=== PATIENT | male | born 1985 | race Caucasian/White ===

== ENCOUNTER 2021-06-02 09:22 | Emergency (ER) | payer OTHER ==
[2021-06-02] MEDS ORDERED: ONDANSETRON 4 MG/2 ML VIAL ONE (09:46)
[2021-06-02] MEDS ORDERED: NA CHLORIDE 0.9% 1,000 ML ONE (09:46)
[2021-06-02 09:47] LABS: Lymphocytes % 12.4 % (15.3-44.8); MPV 9.1 fL (7.6-11.3); RBC Red Blood Cell Count 4.85 M/uL (4.33-5.43)
--- NOTE | 2021-06-02 10:43 | RAD REPORT ---
EXAM DESCRIPTION: CTAbdomen Pelvis W Contrast - 06/02/2021 10:05 am CLINICAL HISTORY: Abdominal pain. right lower abd pain COMPARISON: No comparisons TECHNIQUE: Biphasic CT imaging of the abdomen and pelvis was performed with 100 ml non-ionic IV cont rast. All CT scans are performed using dose optimization technique as appropriate and may include automated exposure control or mA/KV adjustment according to patient size. FINDINGS: The lung bases are clear. The liver, spleen, pancreas, adrenal glands and kidneys are within normal limits. No bowel obstruction, free air, free fluid or abscess. Small fat containing umbilical hernia. The berna endix is normal. No evidence of significant lymphadenopathy. No suspicious bony findings. IMPRESSION: No acute intra-abdominal or pelvic finding.
[2021-06-02 10:48] LABS: Bilirubin Direct 0.1 mg/dL (0-0.2); Bilirubin Total 0.5 mg/dL (0.2-1.0); Protein, Total 7.6 g/dL (6.4-8.2)
[2021-06-02 11:28] LABS: Urine Blood 2+ (Negative); Urine Glucose Negative (Negative); Urine Protein Negative (Negative); Urine Specific Gravity 1.015 (1.005-1.030)
--- NOTE | 2021-06-02 11:35 | EDPHYS ---
Physician Documentation [facility] Name: Car Gillette Age: 35 yrs Sex: Male : 1985 Arrival Date: 06/02/2021 Time: 09:25 Bed 6 Private MD: ED Physician Jose Antonio Chawla HPI: 06/02 09:26 This 35 yrs old Male presents to ER via Unassigned with complaints of Abdominal pain. rn 09:26 The patient presents with abdominal pain right lower quadrant. Onset: The rn symptoms/episode began/occurred this morning. The symptoms do not radiate. Associated signs and symptoms: Pertinent positives: nausea and vomiting, Pertinent negatives: blood in stools, chest pain, fever, hematuria, shortness of breath, testicular pain, vomiting blood. The symptoms are described as sharp, stabbing. Modifying factors: The symptoms are alleviated by nothing, the symptoms are aggravated by touching the area. Severity of pain: At its worst the pain was moderate in the emergency department the pain is unchanged. The patient has not experienced similar symptoms in the past. The patient has not recently seen a physician. Patient reports right lower abdominal pain that began this morning. No fever. No testicular pain or swelling. Reports mild dysuria. Does have history of kidney stones but states this is different. Radiates upward right upper quadrant. Associated with nausea and vomiting. No diarrhea.. Historical: - Allergies: 09:34 No Known Allergies; ke1 - Home Meds: 09:34 None [Active]; ke1 - PMHx: 09:34 None; ke1 - PSHx: 09:34 None; ke1 - Immunization history:: Client reports receiving the 2nd dose of the Covid vaccine. - Social history:: Smoking status: Patient/guardian denies using tobacco, the patient reports quitting approximately 5 years ago. - Family history:: not pertinent. - Hospitalizations: : No recent hospitalization is reported. ROS: 09:26 Constitutional: Negative for fever, chills, and weight loss, Eyes: Negative for injury, rn pain, redness, and discharge, Neck: Negative for injury, pain, and swelling, Cardiovascular: Negative for chest pain, palpitations, and edema, Respiratory: Negative for shortness of breath, cough, wheezing, and pleuritic chest pain, Abdomen/GI: Positive for nausea and vomiting Back: Negative for injury and pain, : Negative for injury, bleeding, discharge, and swelling, MS/Extremity: Negative for injury and deformity, Skin: Negative for injury, rash, and discoloration, Neuro: Negative for headache, weakness, numbness, tingling, and seizure. 09:26 All other systems are negative. Exam: 09:26 Constitutional: This is a well developed, well nourished patient who is awake, alert, rn and in no acute distress. Head/Face: Normocephalic, atraumatic. Eyes: Periorbital areas with no swelling, redness, or edema. Cardiovascular: Regular rate and rhythm. No pulse deficits. Respiratory: No increased work of breathing, no retractions or nasal flaring. Abdomen/GI: Soft,mild RLQ tenderness, no rebound. No masses. No inguinal swelling or masses. Back: No spinal tenderness. No costovertebral tenderness. Full range of motion. Skin: Warm, dry MS/ Extremity: Pulses equal, no cyanosis. Neuro: Awake and alert, GCS 15 Vital Signs: 09:26 BP 131 / 89; Pulse 92; Resp 18; Temp 98.1; Pulse Ox 98% ; Weight 92.08 kg; Height 5 ft. mb7 9 in. (175.26 cm); 09:31 BP 131 / 89; Pulse 99; Resp 18; Temp 98.4; Pulse Ox 99% ; Weight 92.08 kg; Height 5 ft. ke1 9 in. (175.26 cm); Pain 8/10; 10:16 BP 135 / 85; Pulse 63; Resp 16; Pulse Ox 97% ; bp 10:31 BP 125 / 81; Pulse 88; Resp 16 S; Pulse Ox 97% on R/A; jd3 11:48 BP 118 / 71; Pulse 74; Resp 16 S; Pulse Ox 96% on R/A; jd3 09:31 Body Mass Index 29.98 (92.08 kg, 175.26 cm) ke1 MDM: 09:25 Patient medically screened. rn 11:33 Differential diagnosis: appendicitis, diverticulitis, non-specific abd pain, rn Ureterolithiasis, urinary tract infection. Data reviewed: vital signs, nurses notes, lab test result(s), radiologic studies, CT scan, and as a result, I will discharge patient. Counseling: I had a detailed discussion with the patient and/or guardian regarding: the historical points, exam findings, and any diagnostic results supporting the discharge/admit diagnosis, lab results, radiology results, the need for outpatient follow up, to return to the emergency department if symptoms worsen or persist or if there are any questions or concerns that arise at home. Response to treatment: the patient's symptoms have markedly improved after treatment, and as a result, I will discharge patient. Special discussion: Based on the patient's Hx, exam, and Dx evaluation, there is no indication for emergent surgery or inpatient Tx. It is understood by the patient/guardian that if the Sx's persist or worsen they need to return immediately for re-evaluation. I discussed with the patient/guardian in detail that at this point there is no indication for admission to the hospital. It is understood, however, that if the symptoms persist or worsen the patient needs to return immediately for re-evaluation. ED course: No acute findings on CT abdomen pelvis. 2+ hematuria, possibly recently passed kidney stone.. 06/02 09:26 Order name: Basic Metabolic Panel; Complete Time: 11:06 rn 06/02 09:26 Order name: CBC with Diff; Complete Time: 10:04 rn 06/02 09:26 Order name: Hepatic Function; Complete Time: 11: rn 06/02 09:26 Order name: Lipase; Complete Time: 11:06 rn 06/02 09:26 Order name: Urine Microscopic Only rn 06/02 09:26 Order name: SARS-COV-2 RT PCR (Document "Date of Onset" if Symptomatic); Complete Time: rn 11:06/02 09:26 Order name: IV Saline Lock; Complete Time: 09:51 rn 06/02 09:26 Order name: Labs collected and sent; Complete Time: 09:58 rn 06/02 09:26 Order name: CT Abd/Pelvis - IV Contrast Only; Complete Time: 10:44 rn 06/02 09:26 Order name: Urine Dipstick-Ancillary (obtain specimen); Complete Time: 11:32 rn 06/02 11:28 Order name: Urine Dipstick-Ancillary EDMS Administered Medications: 09:50 Drug: NS 0.9% 1000 ml Route: IV; Rate: 1000 ml; Site: right antecubital; ke1 11:49 Follow up: Response: No adverse reaction; IV Status: Completed infusion jd3 09:51 Drug: Zofran (Ondansetron) 4 mg Route: IVP; Site: right antecubital; ke1 10:50 Follow up: Response: No adverse reaction jd3 Disposition Summary: 06/02/21 11:34 Discharge Ordered Location: Home rn Problem: new rn Symptoms: have improved rn Condition: Stable rn Diagnosis - Abdominal pain, unspecified rn Followup: rn - With: Private Physician - When: As needed - Reason: Recheck today's complaints, Re-evaluation by your physician Discharge Instructions: - Discharge Summary Sheet rn - Abdominal Pain, Adult rn Forms: - Medication Reconciliation Form rn - Thank You Letter rn - Antibiotic rn vascular - Prescription Opioid Use rn Signatures: Dispatcher [employer] EDJose Antonio Soliman MD MD rn Ebrottie, Kouassi, RN RN ke1 Jayson Merida RN jd3
--- NOTE | 2021-06-02 11:35 | ER ---
Nurse's Notes [facility] Name: Car Gillette Age: 35 yrs Sex: Male : 1985 Arrival Date: 06/02/2021 Time: 09:25 Bed 6 Private MD: Diagnosis: Abdominal pain, unspecified Presentation: 06/02 09:29 Chief complaint: Patient states: Presents for Right sided abdominal pain that woke him ke1 up this morning at about 5 Am. Coronavirus screen: Vaccine status: Patient reports receiving the 2nd dose of the covid vaccine. 09:29 Method Of Arrival: Law Enforcement: [place] [employer] ke1 09:31 Ebola Screen: No symptoms or risks identified at this time. Initial Sepsis Screen: Does ke1 the patient meet any 2 criteria? No. Patient's initial sepsis screen is negative. Does the patient have a suspected source of infection? No. Patient's initial sepsis screen is negative. 09:33 Risk Assessment: Do you want to hurt yourself or someone else? Patient reports no ke1 desire to harm self or others. Onset of symptoms was June 02, 2021 at 05:00. 09:33 Acuity: SILVANA 3 ke1 Triage Assessment: 09:34 General: Appears uncomfortable, Behavior is calm, cooperative. Pain: Complains of pain ke1 in abdomen Pain does not radiate. Pain level that patient reports is acceptable is 6 out of 10 on a pain scale. Quality of pain is described as crampy, Pain began suddenly, Is continuous, Alleviated by nothing. Aggravated by. Historical: - Allergies: 09:34 No Known Allergies; ke1 - Home Meds: 09:34 None [Active]; ke1 - PMHx: 09:34 None; ke1 - PSHx: 09:34 None; ke1 - Immunization history:: Client reports receiving the 2nd dose of the Covid vaccine. - Social history:: Smoking status: Patient/guardian denies using tobacco, the patient reports quitting approximately 5 years ago. - Family history:: not pertinent. - Hospitalizations: : No recent hospitalization is reported. Screenin:54 Abuse screen: Denies threats or abuse. Nutritional screening: No deficits noted. ke1 Tuberculosis screening: No symptoms or risk factors identified. Fall Risk None identified. Assessment: 09:41 General: Appears in no apparent distress. uncomfortable, Behavior is calm, cooperative, jd3 appropriate for age. Pain: Complains of pain in abdomen Quality of pain is described as aching. Neuro: Level of Consciousness is awake, alert, obeys commands, Oriented to person, place, time, situation. Cardiovascular: Denies chest pain, Capillary refill < 3 seconds Patient's skin is warm and dry. Respiratory: Airway is patent Respiratory effort is even, unlabored, Respiratory pattern is regular, symmetrical, Denies cough, shortness of breath. GI: Abdomen is round non-distended, Abd is soft and non tender X 4 quads. Reports lower abdominal pain, upper abdominal pain. : No signs and/or symptoms were reported regarding the genitourinary system. EENT: No signs and/or symptoms were reported regarding the EENT system. Derm: Skin is intact, Skin is dry, Skin is normal, Skin temperature is warm. Musculoskeletal: Circulation, motion, and sensation intact. Range of motion: intact in all extremities. 10:40 Reassessment: Patient appears in no apparent distress at this time. Patient and/or jd3 family updated on plan of care and expected duration. Pain level reassessed. Patient is alert, oriented x 3, equal unlabored respirations, skin warm/dry/pink. Patient states feeling better. 11:40 Reassessment: Patient appears in no apparent distress at this time. No changes from jd3 previously documented assessment. Patient and/or family updated on plan of care and expected duration. Pain level reassessed. Patient is alert, oriented x 3, equal unlabored respirations, skin warm/dry/pink. Vital Signs: 09:26 BP 131 / 89; Pulse 92; Resp 18; Temp 98.1; Pulse Ox 98% ; Weight 92.08 kg; Height 5 ft. mb7 9 in. (175.26 cm); 09:31 BP 131 / 89; Pulse 99; Resp 18; Temp 98.4; Pulse Ox 99% ; Weight 92.08 kg; Height 5 ft. ke1 9 in. (175.26 cm); Pain 8/10; 10:16 BP 135 / 85; Pulse 63; Resp 16; Pulse Ox 97% ; bp 10:31 BP 125 / 81; Pulse 88; Resp 16 S; Pulse Ox 97% on R/A; jd3 11:48 BP 118 / 71; Pulse 74; Resp 16 S; Pulse Ox 96% on R/A; jd3 09:31 Body Mass Index 29.98 (92.08 kg, 175.26 cm) ke1 ED Course: 09:25 Patient arrived in ED. rn 09:25 Jose Antonio Chawla MD is Attending Physician. rn 09:34 Triage completed. ke1 09:39 Arm band placed on right wrist. ke1 09:41 Jayson Merida RN is Primary Nurse. jd3 09:52 Inserted saline lock: 20 gauge in right antecubital area, using aseptic technique. ke1 09:54 Patient has correct armband on for positive identification. Bed in low position. Call ke1 light in reach. [facility] [employer] correctional officer at bedside. 10:05 CT Abd/Pelvis - IV Contrast Only In Process Unspecified. EDMS 11:18 Rojas Jones, RN is Primary Nurse. bp 11:32 Urine Microscopic Only Sent. ke1 11:46 Primary Nurse role handed off by Rojas Jones RN jd3 11:46 Jayson Merida RN is Primary Nurse. jd3 11:48 No provider procedures requiring assistance completed. jd3 11:58 IV discontinued, intact, bleeding controlled, No redness/swelling at site. Pressure jd3 dressing applied. Administered Medications: 09:50 Drug: NS 0.9% 1000 ml Route: IV; Rate: 1000 ml; Site: right antecubital; ke1 11:49 Follow up: Response: No adverse reaction; IV Status: Completed infusion jd3 09:51 Drug: Zofran (Ondansetron) 4 mg Route: IVP; Site: right antecubital; ke1 10:50 Follow up: Response: No adverse reaction jd3 Outcome: 11:34 Discharge ordered by . rn 11:57 Discharged to home ambulatory, with [facility] guards jd3 11:57 Condition: stable 11:57 Discharge instructions given to patient, Instructed on discharge instructions, follow up and referral plans. Demonstrated understanding of instructions, follow-up care. 11:59 Patient left the ED. jd3 Signatures: Dispatcher [employer] EDMS Jose Antonio Chawla MD MD rn Davies, Jonathon, RN RN j Rojas Jones RN RN bp Breneman, Mary [facility] Richard Mohan RN RN ke1 Corrections: (The following items were deleted from the chart) 11:49 11:48 Response: No adverse reaction jd3 jd3
[2021-06-02 11:53] LABS: Urine RBC <5 /HPF (NONE SEEN)
[2021-06-02 11:54] LABS: Urine Bacteria 20-50 /HPF (NONE SEEN)
[2021-06-02 12:17] VITALS: TEMP 98.4
[2021-06-02 12:20] VITALS: BP 118/71; O2SAT 96
== END 2021-06-02 11:59 | disposition home or self-care (01) ==
LOC: ER 09:22
DX: R10.31 Right lower quadrant pain (principal); Z20.822 Contact with and (suspected) exposure to COVID-19
CPT/HCPCS: 96361; 85025; 80048; 36415; 82565; 80076; 83690; 74177; 96374; 99284; U0003; Q9967; J2405; 81003; 81015; J7030